=== PATIENT | male | born 1980 | race African-American/Black ===

== ENCOUNTER 2018-03-07 22:22 | Emergency (ER) | payer OTHER ==
[2018-03-08] MEDS: AZITHROMYCIN 250 MG TAB PO (00:29)
[2018-03-08] MEDS: cefTRIAXone SOD 500 MG VIAL (J0696) IM (00:29)
[2018-03-08 00:39] LABS: KETONE, URINE AUTO RFX NEGATIVE (NEGATIVE); MUCUS, URINE RFX SMALL (NEGATIVE); NITRITE, URINE AUTO RFX NEGATIVE (NEGATIVE); RBC, URINE AUTO RFX 3 /HPF (0-3); SPECIFIC GRAVITY UR AUTO RFX 1.027 (1.002-1.035); SQUAM EPITHELIAL CELL UR AURFX 0 /HPF (0-6)
[2018-03-08 01:00] LABS: LEUKOCYTE ESTERASE UR AUTO RFX TRACE (NEGATIVE); WBC, URINE AUTO RFX 12 /HPF (0-3)
[2018-03-08 02:03] LABS: CHLAMYDIA DNA AMPLIFICATION POSITIVE (NEGATIVE); GC DNA AMPLIFICATION NEGATIVE (NEGATIVE)
== END 2018-03-08 01:06 | disposition home or self-care (01) ==
LOC: M ED 22:22
DX: N50.89 Other specified disorders of the male genital organs (principal); A74.9 Chlamydial infection, unspecified
CPT/HCPCS: J0696